=== PATIENT | male | born 1950 | race Caucasian/White ===

== ENCOUNTER 2017-08-14 19:55 | Emergency (ER) | payer OTHER ==
[~2017-08-14] VITALS: Ht 177.8 cm; Wt 83.0 kg
[2017-08-14 20:21] LABS: APPEARANCE SL.HAZY ((CLEAR)); BILIRUBIN NEGATIVE; BLOOD NEGATIVE; COLOR YELLOW ((YELLOW)); GLUCOSE (STRIP) 50; KETONES 5; LEUKOCYTES NEGATIVE; NITRITE NEGATIVE; PROTEIN (STRIP) 100; UROBILINOGEN 0.2 MG/DL (0.2-1.0)
[2017-08-14 20:24] LABS: BACTERIA NONE SEEN /HPF; EPITHELIAL CELLS NONE SEEN /HPF; MUCUS TRACE /LPF; RED BLOOD CELLS 30-40 /HPF (0-5); UCUL ADDED? NO; WHITE BLOOD CELLS 0-5 /HPF (0-5)
[2017-08-14 20:48] LABS: HEMOGLOBIN 16.9 G/DL (12.5-16.6); MCH 32.4 PG (29.0-34.0); MCV 90.2 FL (86-99); PLATELET COUNT 182 K/uL (156-360); RBC DIS.WIDTH-CV 13.1 % (11.8-14.6); RBC DIS.WIDTH-SD 43.4 % (39-53); RED BLOOD COUNT 5.21 M/uL (4.00-5.50); WHITE BLOOD COUNT 9.8 K/uL (4.1-10.2)
[2017-08-14 20:57] LABS: CHLORIDE 102 mEq/L (99-109); POTASSIUM 4.2 mEq/L (3.7-5.4); SODIUM 138 mEq/L (136-147)
[2017-08-14 20:58] LABS: ALBUMIN 4.8 g/dL (3.2-4.8); GLUCOSE 146 mg/dL (70-99)
[2017-08-14 21:01] LABS: TOTAL PROTEIN 8.1 g/dL (6.4-8.3)
[2017-08-14 21:02] LABS: CREATININE 1.2 mg/dL (0.6-1.3); GFR ESTIMATE (CALCULATED) > 59 mL/min/ (58.99-99999)
[2017-08-14 21:03] LABS: TOTAL BILIRUBIN 1.5 mg/dL (0.0-1.0); UREA NITROGEN (BUN) 15 mg/dL (9-23)
[2017-08-14 21:04] LABS: ALKALINE PHOSPHATASE 90 IU/L (3-129)
[2017-08-14 21:06] LABS: AST (GOT) 35 IU/L (2-34); DIRECT BILIRUBIN 0.5 mg/dL (0.0-0.3)
[2017-08-14 21:07] LABS: ALT (GPT) 37 IU/L (3-49); LIPASE 12 U/L (1.0-51.0)
[2017-08-14] MEDS ORDERED: PERCOCET 5/31 TABLET PO (23:47)
[2017-08-14] MEDS ORDERED: FLOMAX0.4 MG PO (23:47)
[2017-08-14] MEDS ORDERED: ZOFRAN4 MG PO (23:47)
[2017-08-15 00:39] VITALS: BP 145/85
== END 2017-08-15 00:40 | disposition home or self-care (01) ==
LOC: EME 19:55
DX: N13.2 Hydronephrosis with renal and ureteral calculous obstruction (principal); E78.5 Hyperlipidemia, unspecified; I10 Essential (primary) hypertension
CPT/HCPCS: 74176; 80048; 80076; 81003; 83690; 85027; 99281; 99285; J2405; J3010; J7030